=== PATIENT | female | born 1970 | race Caucasian/White ===

== ENCOUNTER 2018-11-25 12:35 | Emergency (ER) | payer OTHER ==
[~2018-11-25] VITALS: Ht 157.5 cm; Wt 59.0 kg
[2018-11-25 13:00] VITALS: BP_SYST 124
[2018-11-25 13:30] VITALS: BP_SYST 128
== END 2018-11-25 13:29 | disposition home or self-care (01) ==
LOC: SED 12:35
DX: S82.891A Other fracture of right lower leg, initial encounter for closed fracture (principal); R03.0 Elevated blood-pressure reading, without diagnosis of hypertension; W01.0XXA Fall on same level from slipping, tripping and stumbling without subsequent striking against object, initial encounter; Y93.89 Activity, other specified; Y92.89 Other specified places as the place of occurrence of the external cause; Y99.8 Other external cause status
CPT/HCPCS: 99283